=== PATIENT | male | born 1995 | race Caucasian/White ===

== ENCOUNTER 2018-04-07 16:00 | Emergency (ER) | payer OTHER, MEDICAID ==
[2018-04-07] MEDS: MORPHINE 10 MG/ML 1ML VIAL (J2270) IM (16:37)
[2018-04-07] MEDS: CYCLOBENZAPRINE 10 MG TAB PO (16:37)
[2018-04-07] MEDS: MORPHINE 4 MG/ML 1ML VIAL/SYRINGE (J2270) IV (22:13)
[2018-04-07] MEDS: NS 1,000 ML IV (22:40)
== END 2018-04-07 23:14 | disposition short-term general hospital (02) ==
LOC: M ED 16:00
DX: S32.019A Unspecified fracture of first lumbar vertebra, initial encounter for closed fracture (principal); S32.029A Unspecified fracture of second lumbar vertebra, initial encounter for closed fracture; V47.0XXA Car driver injured in collision with fixed or stationary object in nontraffic accident, initial encounter
CPT/HCPCS: J2270

== ENCOUNTER 2020-09-30 11:26 | Emergency (ER) | payer OTHER, SELFPAY ==
[~2020-09-30] VITALS: Ht 188 cm; Wt 88.1 kg
[2020-09-30 11:27] VITALS: BP 120/57
[2020-09-30] MEDS ORDERED: ASPIRIN 325 MG TAB PO ONE (12:20)
--- NOTE | 2020-09-30 12:28 | REP ---
INDICATION: CHEST PAIN. COMPARISON: None. TECHNIQUE: Single portable AP view of the chest was performed. FINDINGS: There is no acute infiltrate or pulmonary edema. Lungs are clear. The heart is not significantly enlarged. The mediastinal silhouette is unremarkable. The visualized osseous structures are intact.There are Gomez rods in the lumbar spine. IMPRESSION: No acute pulmonary disease. <Electronically signed by Michael Henning > 09/30/20 [id number]
[2020-09-30 13:02] LABS: BASO % 0.4 % (0.0-1.0); EOS # 0.1 10^3/uL (0.0-0.5); HEMATOCRIT 44.4 % (42.0-52.0); HEMOGLOBIN 15.2 g/dl (13.5-17.5); LYMPH # 2.1 10^3/uL (1.5-5.0); LYMPH % 29.5 % (24.0-44.0); MEAN CORPUSCULAR HEMOGLOBIN 29.7 pg (27.0-33.0); MEAN CORPUSCULAR HGB CONC 34.2 g/dl (32.0-36.5); MEAN CORPUSCULAR VOLUME 86.9 fl (80.0-96.0); MONO # 0.4 10^3/uL (0.0-0.8); MONO % 6.1 % (2.0-8.0); NEUTROPHILS # 4.5 10^3/uL (1.5-8.5); NEUTROPHILS % 62.7 % (36.0-66.0); PLATELET COUNT, AUTOMATED 237 10^3/uL (150-450); RED BLOOD COUNT 5.11 10^6/uL (4.30-6.10); WHITE BLOOD COUNT 7.2 10^3/uL (4.0-10.0)
[2020-09-30 13:13] LABS: INR 1.03; PROTHROMBIN TIME 13.7 SECONDS (12.5-14.3)
[2020-09-30 13:16] LABS: D-DIMER QUANT 375.17 ng/ml (<500)
[2020-09-30 13:31] LABS: ALBUMIN 4.3 GM/DL (3.2-5.2); ALT/SGPT 36 U/L (12-78); BILIRUBIN,DIRECT 0.2 MG/DL (0.0-0.2); BILIRUBIN,TOTAL 0.7 MG/DL (0.2-1.0); BLOOD UREA NITROGEN 19 MG/DL (7-18); CALCIUM LEVEL 9.8 MG/DL (8.5-10.1); CARBON DIOXIDE LEVEL 28 MEQ/L (21-32); CHLORIDE LEVEL 111 MEQ/L (98-107); CK-MB VALUE MASS 1.5 NG/ML (<3.6); CPK CREATINE PHOSPHOKINASE 166 U/L (39-308); CREATININE FOR GFR 0.99 MG/DL (0.70-1.30); GLOMERULAR FILTRATION RATE > 60.0 (>60); GLUCOSE, FASTING 92 MG/DL (70-100); LIPASE 56 U/L (73-393); SODIUM LEVEL 143 MEQ/L (136-145); TOTAL PROTEIN 7.1 GM/DL (6.4-8.2); TROPONIN I < 0.02 NG/ML (< 0.10)
--- NOTE | 2020-09-30 20:28 | ECGEPIP ---
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
== END 2020-09-30 14:31 | disposition left against medical advice (07) ==
LOC: M ED 11:26
DX: R07.9 Chest pain, unspecified (principal); Z88.0 Allergy status to penicillin; F17.210 Nicotine dependence, cigarettes, uncomplicated

== ENCOUNTER 2022-12-30 21:47 | Emergency (ER) | payer SELFPAY ==
[2022-12-30 22:56] LABS: HEMATOCRIT 44.8 % (42.0-52.0); HEMOGLOBIN 14.8 g/dl (13.5-17.5); MEAN CORPUSCULAR HEMOGLOBIN 29.2 pg (27.0-33.0); MEAN CORPUSCULAR VOLUME 88.4 fl (80.0-96.0); PLATELET COUNT, AUTOMATED 244 10^3/uL (150-450); RED BLOOD COUNT 5.07 10^6/uL (4.30-6.10); WHITE BLOOD COUNT 11.3 10^3/uL (4.0-10.0)
[2022-12-30 23:19] LABS: ETHYL ALCOHOL (ETHANOL) < 0.003 % (0.000-0.010)
[2022-12-30 23:20] LABS: ACETAMINOPHEN LEVEL < 2.0 UG/ML (10.0-20.0); SALICYLATE LEVEL < 3.0 MG/DL (<30)
[2022-12-30 23:21] LABS: ALBUMIN 4.6 G/DL (3.2-5.2); ALKALINE PHOSPHATASE 64 U/L (46-116); ALT/SGPT 19 U/L (7.0-40); AST/SGOT 11 U/L (<34); BILIRUBIN,DIRECT 0.4 MG/DL (<0.4); BILIRUBIN,TOTAL 0.9 MG/DL (0.3-1.2); BLOOD UREA NITROGEN 17 MG/DL (9-23); CALCIUM LEVEL 10.3 MG/DL (8.5-10.1); CARBON DIOXIDE LEVEL 28 MMOL/L (20-31); CHLORIDE LEVEL 108 MMOL/L (98-107); CREATININE FOR GFR 0.98 MG/DL (0.70-1.30); GLOMERULAR FILTRATION RATE > 60.0 (>60); GLUCOSE, FASTING 105 MG/DL (60-100); POTASSIUM SERUM 4.6 MMOL/L (3.5-5.1); SODIUM LEVEL 144 MMOL/L (136-145); TOTAL PROTEIN 7.2 G/DL (5.7-8.2)
[2022-12-31 00:10] LABS: PHOSPHORUS LEVEL 3.5 MG/DL (2.5-4.9)
[2022-12-31 01:04] LABS: PTH INTACT 31.7 PG/ML (18.5-88.0)
[2022-12-31 04:48] LABS: AMPHETAMINES LEVEL URINE NEGATIVE (NEGATIVE); BARBITURATES URINE NEGATIVE (NEGATIVE); BENZODIAZEPINES URINE NEGATIVE (NEGATIVE); COCAINE METABOLITE URINE NEGATIVE (NEGATIVE)
[2022-12-31 04:49] LABS: METHADONE URINE NEGATIVE (NEGATIVE); OPIATES URINE NEGATIVE (NEGATIVE); PHENCYCLIDINE URINE NEGATIVE (NEGATIVE)
[2022-12-31 04:50] LABS: CANNABINOIDS URINE POSITIVE (NEGATIVE)
[2022-12-31 06:12] VITALS: BP 138/82; TEMP 97.5; O2SAT 99
== END 2022-12-31 07:41 | disposition home or self-care (01) ==
LOC: M ED 21:47
DX: F43.9 Reaction to severe stress, unspecified (principal); F17.200 Nicotine dependence, unspecified, uncomplicated; Z88.0 Allergy status to penicillin

== ENCOUNTER 2023-08-20 15:12 | Emergency (ER) | payer SELFPAY ==
[~2023-08-20] VITALS: Ht 182.9 cm; Wt 81.1 kg
[2023-08-20 15:19] VITALS: BP 124/67; TEMP 97.9; O2SAT 99
[2023-08-20] MEDS: BOOSTRIX VACCINE (TETANUS/DIPHTH/ACEL. PERTUSSIS) 0.5ML SYR IM ONE (15:42)
[2023-08-20] MEDS: LIDOCAINE W/EPINEPHRINE 1% 20ML VIAL SC ONE (16:10)
[2023-08-20] MEDS: DOXYCYCLINE HYCLATE 100MG TABLET PO ONE (16:16)
[2023-08-20] MEDS: metroNIDAZOLE (FLAGYL) 500MG TABLET PO ONE (16:16)
[2023-08-20] MEDS ORDERED: DOXY-443 PO (16:56)
[2023-08-20] MEDS ORDERED: METR-265 PO (16:56)
== END 2023-08-20 17:04 | disposition home or self-care (01) ==
LOC: M ED 15:12
DX: S01.23XA Puncture wound without foreign body of nose, initial encounter (principal); S01.511A Laceration without foreign body of lip, initial encounter; W54.0XXA Bitten by dog, initial encounter; F17.200 Nicotine dependence, unspecified, uncomplicated; Y92.009 Unspecified place in unspecified non-institutional (private) residence as the place of occurrence of the external cause; Y93.89 Activity, other specified; Y99.9 Unspecified external cause status; Z79.2 Long term (current) use of antibiotics; Z23 Encounter for immunization